=== PATIENT | male | born 1990 | race African-American/Black ===

== ENCOUNTER 2018-03-22 15:16 | Emergency (ER) | payer OTHER ==
[~2018-03-22] VITALS: Ht 167.6 cm; Wt 108.9 kg
[2018-03-22] MEDS ORDERED: ACETAMINOPHEN-1 EAC1 PO (15:55)
[2018-03-22] MEDS ORDERED: ROBAXIN 750 MG750 M1 PO (15:55)
[2018-03-22] MEDS ORDERED: NAPROSYN500 MG PO (15:55)
[2018-03-22 16:20] VITALS: BP 128/80
== END 2018-03-22 16:21 | disposition home or self-care (01) ==
LOC: M.ERS 15:16
DX: M54.5 Low back pain (principal); F17.200 Nicotine dependence, unspecified, uncomplicated

== ENCOUNTER 2018-04-20 18:06 | Emergency (ER) | payer OTHER ==
[~2018-04-20] VITALS: Ht 167.6 cm; Wt 108.9 kg
[~2018-04-20 18:06] MED LIST: ACETAMINOPHEN-1 EAC1 PO; NAPROSYN500 MG PO; ROBAXIN 750 MG750 M1 PO
[2018-04-20 18:41] LABS: URINE BILIRUBIN NEGATIVE (Negative); URINE BLOOD NEGATIVE (Negative); URINE CLARITY CLEAR; URINE COLOR YELLOW; URINE GLUCOSE-RANDOM NEGATIVE (Negative); URINE KETONES NEGATIVE (Negative); URINE LEUKOCYTES-REFLEX NEGATIVE (Negative); URINE NITRITE-REFLEX NEGATIVE (Negative); URINE PROTEIN NEGATIVE (Negative); URINE SPECIFIC GRAVITY 1.025 (1.005-1.030); URINE UROBILINOGEN 0.2 E.U./dl (0.2-1.0)
[2018-04-20 18:58] VITALS: BP 144/81
== END 2018-04-20 18:59 | disposition home or self-care (01) ==
LOC: M.ERS 18:06
PROVIDERS: Physician Assistant
DX: Z20.2 Contact with and (suspected) exposure to infections with a predominantly sexual mode of transmission (principal)

== ENCOUNTER 2018-06-29 18:34 | Emergency (ER) | payer OTHER ==
[~2018-06-29] VITALS: Ht 167.6 cm; Wt 110.7 kg
[2018-06-29 18:42] VITALS: BP 141/92
[2018-06-29] MEDS ORDERED: ERYTHROMYCIN E3.5 G2 OPHTHALMIC (19:01)
== END 2018-06-29 19:12 | disposition home or self-care (01) ==
LOC: M.ERS 18:34
DX: H01.004 Unspecified blepharitis left upper eyelid (principal); F17.210 Nicotine dependence, cigarettes, uncomplicated